=== PATIENT | female | born 1970 | race Caucasian/White ===

== ENCOUNTER 2016-08-13 13:21 | Emergency (ER) | payer BC ==
[~2016-08-13] VITALS: Ht 165.1 cm; Wt 57.7 kg
[2016-08-13 13:50] LABS: BASO # 0.1 (0.0-0.2); BASO % 0.5 % (0.0-2.0); EOS # 0.3 (0.0-0.7); EOS % 2.8 % (0-4.0); GRAN # 7.3 (1.4-6.5); HEMATOCRIT 43.4 % (37.0-47.0); HEMOGLOBIN 15.1 g/dl (12.5-16.0); LYMPH # 3.7 (1.2-3.4); LYMPH % 30.2 % (20.0-51.0); MEAN CELL VOLUME 93 fl (80.0-100.0); MEAN CORPUSCULAR HEMOGLOBIN 32 pg (27.0-31.0); MEAN CORPUSCULAR HGB CONC 35 g/dl (33.0-37.0); MEAN PLATELET VOLUME 9.8 fl (7.4-10.4); MONO # 0.8 (0.1-0.6); MONO % 6.2 % (1.7-9.3); PLATELET COUNT 245 K/mm3 (130-400); RED BLOOD COUNT 4.69 M/mm3 (4.10-5.30); REDCELL DISTRIBUTION WIDTH-CV 13.7 % (11.5-14.5); WHITE BLOOD COUNT 12.1 K/mm3 (4.8-10.8)
[2016-08-13] MEDS ORDERED: MOTRIN 200200 MG/TAB PO (13:51)
[2016-08-13] MEDS ORDERED: ASPIRIN 81M81 MG/TA2 PO (13:51)
[2016-08-13] MEDS ORDERED: PRILOSEC 20MG20 MG PO (13:52)
[2016-08-13] MEDS ORDERED: ULTRAM 50MG TAB50 MG PO (13:52)
[2016-08-13 14:00] LABS: PROTHROMBIN TIME 11.2 SECONDS (9.7-12.8)
[2016-08-13 14:02] LABS: PARTIAL THROMBOPLASTIN TIME 34.7 SECONDS (26.0-37.0)
[2016-08-13 14:13] LABS: ADJUSTED CALCIUM 10.2 mg/dL (8.4-10.2); ALANINE AMINOTRANSFERASE 37 U/L (9-52); ALBUMIN 4.5 gm/dL (3.5-5.0); ALKALINE PHOSPHATASE 104 U/L (50-136); ANION GAP 14 mmol/L (7-16); BILIRUBIN,TOTAL 0.6 mg/dL (0.0-1.0); BLOOD UREA NITROGEN 18 mg/dL (7-17); CALCIUM 10.6 mg/dL (8.4-10.2); CARBON DIOXIDE 27 mmol/L (22-30); CHLORIDE 98 mmol/L (98-107); CREATININE, serum 1.09 mg/dL (0.52-1.25); GLUCOSE 88 mg/dL (74-106); SODIUM 139 mmol/L (137-145); TOTAL PROTEIN 8.4 gm/dL (6.4-8.2)
[2016-08-13 15:04] LABS: TROPONIN-I < 0.012 ng/mL (0.000-0.034)
[2016-08-13 17:50] VITALS: BP 139/72; PULSE 73
== END 2016-08-13 17:50 | disposition home or self-care (01) ==
LOC: COL.ER 13:21
PROVIDERS: Emergency Medicine
DX: R07.89 Other chest pain (principal); F17.210 Nicotine dependence, cigarettes, uncomplicated

== ENCOUNTER 2017-02-18 15:29 | Emergency (ER) | payer BC ==
[~2017-02-18] VITALS: Ht 172.7 cm; Wt 61.8 kg
[~2017-02-18 15:29] MED LIST: ASPIRIN 81M81 MG/TA2 PO; MOTRIN 200200 MG/TAB PO; PRILOSEC 20MG20 MG PO; ULTRAM 50MG TAB50 MG PO
[2017-02-18 15:46] VITALS: BP 138/76; TEMP 97
[2017-02-18 16:19] LABS: BASO # 0.1 (0.0-0.2); BASO % 0.6 % (0.0-2.0); EOS # 0.2 (0.0-0.7); EOS % 2.3 % (0-4.0); GRAN # 5.1 (1.4-6.5); HEMATOCRIT 39.4 % (37.0-47.0); HEMOGLOBIN 13.7 g/dl (12.5-16.0); LYMPH # 3.4 (1.2-3.4); LYMPH % 36.2 % (20.0-51.0); MEAN CELL VOLUME 92 fl (80.0-100.0); MEAN CORPUSCULAR HEMOGLOBIN 32 pg (27.0-31.0); MEAN CORPUSCULAR HGB CONC 35 g/dl (33.0-37.0); MEAN PLATELET VOLUME 9.5 fl (7.4-10.4); MONO # 0.6 (0.1-0.6); MONO % 6.6 % (1.7-9.3); PLATELET COUNT 231 K/mm3 (130-400); RED BLOOD COUNT 4.28 M/mm3 (4.10-5.30); REDCELL DISTRIBUTION WIDTH-CV 13.2 % (11.5-14.5); WHITE BLOOD COUNT 9.5 K/mm3 (4.8-10.8)
[2017-02-18 16:31] LABS: PROTHROMBIN TIME 10.9 SECONDS (9.7-12.8)
[2017-02-18 16:33] LABS: PARTIAL THROMBOPLASTIN TIME 30.6 SECONDS (26.0-37.0)
[2017-02-18 16:34] LABS: ADJUSTED CALCIUM 9.3 mg/dL (8.4-10.2); ALANINE AMINOTRANSFERASE 26 U/L (9-52); ALBUMIN 4.3 gm/dL (3.5-5.0); ALKALINE PHOSPHATASE 94 U/L (50-136); ANION GAP 10 mmol/L (7-16); BILIRUBIN,TOTAL 0.4 mg/dL (0.0-1.0); BLOOD UREA NITROGEN 8 mg/dL (7-17); CALCIUM 9.5 mg/dL (8.4-10.2); CARBON DIOXIDE 26 mmol/L (22-30); CHLORIDE 96 mmol/L (98-107); CREATININE, serum 0.76 mg/dL (0.52-1.25); GLUCOSE 97 mg/dL (74-106); POTASSIUM 3.7 mmol/L (3.4-5.0); SODIUM 133 mmol/L (137-145); TOTAL PROTEIN 7.6 gm/dL (6.4-8.2)
[2017-02-18 16:48] LABS: TROPONIN-I < 0.012 ng/mL (0.000-0.034)
[2017-02-18] MEDS ORDERED: MEDROL 4MG DOSPA4 MG PO (17:21)
[2017-02-18] MEDS ORDERED: NORCO 325 MG-51 TAB PO (17:22)
[2017-02-18 17:57] VITALS: PULSE 64
== END 2017-02-18 17:59 | disposition home or self-care (01) ==
LOC: COL.ER 15:29
PROVIDERS: Family Medicine
DX: M54.12 Radiculopathy, cervical region (principal); I25.10 Atherosclerotic heart disease of native coronary artery without angina pectoris; K21.9 Gastro-esophageal reflux disease without esophagitis; Z95.5 Presence of coronary angioplasty implant and graft
CPT/HCPCS: J2270; J2405

== ENCOUNTER → 2017-03-18 | Outpatient (CLI) | payer BC ==
[~2017-03-18] MED LIST changes: +MEDROL 4MG DOSPA4 MG PO; +NORCO 325 MG-51 TAB PO
== END ==
LOC: MC.RAD 09:40
DX: N64.89 Other specified disorders of breast (principal); R92.0 Mammographic microcalcification found on diagnostic imaging of breast

== ENCOUNTER 2017-04-09 06:54 | Day surgery (SDC) | payer BC ==
[~2017-04-09] VITALS: Ht 165.1 cm; Wt 68.1 kg
[2017-04-09 08:18] VITALS: BP 120/71; PULSE 65; TEMP 97.5
[2017-04-09] MEDS ORDERED: PLAVIX 75MG TAB75 MG PO (08:33)
[2017-04-09] MEDS ORDERED: NORCO 325 MG-51 TAB PO (14:58)
[2017-04-09] MEDS ORDERED: COLACE 100100 MG/CAP PO (14:59)
[2017-04-09] MEDS ORDERED: MOTRIN 600600 MG/TAB PO (14:59)
[2017-04-09 15:05] VITALS: BP 109/63; PULSE 65; TEMP 97.2
[2017-04-09 15:15] VITALS: BP 113/65; PULSE 62
[2017-04-09 15:30] VITALS: BP 109/73; PULSE 62
[2017-04-09 15:55] VITALS: BP 118/70; PULSE 60
[2017-04-09 16:15] VITALS: BP 100/60; PULSE 59
== END 2017-04-09 17:00 | disposition home or self-care (01) ==
LOC: SDCO 06:54
DX: D05.11 Intraductal carcinoma in situ of right breast (principal); I25.10 Atherosclerotic heart disease of native coronary artery without angina pectoris; Z86.718 Personal history of other venous thrombosis and embolism; Z86.73 Personal history of transient ischemic attack (TIA), and cerebral infarction without residual deficits; G43.909 Migraine, unspecified, not intractable, without status migrainosus; C79.02 Secondary malignant neoplasm of left kidney and renal pelvis; F17.210 Nicotine dependence, cigarettes, uncomplicated; Z79.01 Long term (current) use of anticoagulants; K21.9 Gastro-esophageal reflux disease without esophagitis; Z95.828 Presence of other vascular implants and grafts; Z82.49 Family history of ischemic heart disease and other diseases of the circulatory system; Z83.3 Family history of diabetes mellitus
CPT/HCPCS: A9541; J1170; J2405; J2704; J3010; J7030

== ENCOUNTER → 2017-04-21 | Outpatient (CLI) | payer BC ==
[~2017-04-21] MED LIST changes: +COLACE 100100 MG/CAP PO; +MOTRIN 600600 MG/TAB PO; +NEURONTIN100 MG/CAP PO; +PLAVIX 75MG TAB75 MG PO
== END ==
LOC: COL.VAS 12:24
DX: Z79.899 Other long term (current) drug therapy (principal)

== ENCOUNTER 2017-04-23 11:43 | Day surgery (SDC) | payer BC ==
[~2017-04-23] VITALS: Ht 162.6 cm; Wt 62.8 kg
[~2017-04-23 11:43] MED LIST changes: -NEURONTIN100 MG/CAP PO
[2017-04-23 12:23] VITALS: BP 123/75; PULSE 97; TEMP 97.3
[2017-04-23] MEDS ORDERED: NORCO 325 MG-51 TAB PO (14:00)
[2017-04-23] MEDS ORDERED: COLACE 100100 MG/CAP PO (14:00)
[2017-04-23] MEDS ORDERED: MOTRIN 600600 MG/TAB PO (14:00)
[2017-04-23] MEDS ORDERED: NEURONTIN100 MG/CAP PO (14:01)
[2017-04-23 15:05] VITALS: BP 129/73; PULSE 68; TEMP 97.5
[2017-04-23 15:20] VITALS: BP 125/70; PULSE 69
[2017-04-23 15:35] VITALS: BP 144/76; PULSE 70
== END 2017-04-23 15:55 | disposition home or self-care (01) ==
LOC: SDCO 11:43
DX: C50.911 Malignant neoplasm of unspecified site of right female breast (principal); G43.909 Migraine, unspecified, not intractable, without status migrainosus; I25.10 Atherosclerotic heart disease of native coronary artery without angina pectoris; F17.210 Nicotine dependence, cigarettes, uncomplicated; Z86.73 Personal history of transient ischemic attack (TIA), and cerebral infarction without residual deficits; Z90.49 Acquired absence of other specified parts of digestive tract; Z79.01 Long term (current) use of anticoagulants; Z82.49 Family history of ischemic heart disease and other diseases of the circulatory system; Z83.3 Family history of diabetes mellitus; Z80.1 Family history of malignant neoplasm of trachea, bronchus and lung
CPT/HCPCS: C1788; J0690; J1644; J2704; J3010; J7030; J7120

== ENCOUNTER → 2017-12-15 | Outpatient (CLI) | payer BC ==
[~2017-12-15] MED LIST changes: +NEURONTIN100 MG/CAP PO
== END ==
LOC: COL.VAS 09:35
DX: Z51.81 Encounter for therapeutic drug level monitoring (principal); C50.411 Malignant neoplasm of upper-outer quadrant of right female breast; I36.1 Nonrheumatic tricuspid (valve) insufficiency; Z79.899 Other long term (current) drug therapy

== ENCOUNTER → 2018-07-23 | Outpatient (CLI) | payer BC | LOC: COL.RAD 09:30 | DX: C50.411 Malignant neoplasm of upper-outer quadrant of right female breast (principal); J84.9 Interstitial pulmonary disease, unspecified; J84.10 Pulmonary fibrosis, unspecified; R91.1 Solitary pulmonary nodule; R59.0 Localized enlarged lymph nodes; Z98.890 Other specified postprocedural states | CPT/HCPCS: A9503; Q9967 ==

== ENCOUNTER 2018-08-23 14:40 | Inpatient (IN) | payer BC ==
[~2018-08-23] VITALS: Ht 162.6 cm; Wt 62.6 kg
[2018-09-28] VITALS (12 sets, daily range): BP systolic 30–164; BP diastolic 63–74; PULSE 57–74; TEMP 97.3–98.7
[2018-09-28] MEDS ORDERED: ZOFRAN8 MG PO (07:02)
[2018-09-28] MEDS ORDERED: PAXIL 20MG20 MG PO (07:02)
[2018-09-28] MEDS ORDERED: TYLENOL 500MG500 MG PO (07:03)
[2018-09-28] MEDS ORDERED: VENTOLIN0.09 MG IH (07:04)
--- NOTE | 2018-09-28 15:20 | NUR ---
Patient resting in bed with eyes closed. When patient opens eyes, she cries out in pain, but falls asleep frequently. Arousable to touch and voice. Oriented to self, place, time, and day. Keeps asking for family to take her home when she is awake and complains of significant pain. Patient able to answer questions about home medications, but would rest her eyes in between questions. Following ERAS protocol. 55ml of ellen urine noted in Feldman. 55ml of dark red drainage from KERVIN drain. 5 lap sites covered with CDI bandaids. Drain site covered with tegaderm. Noted to have small amount of red drainage. Family and patient educated on ERAS protocol. Water and apple juice at bedside.
--- NOTE | 2018-09-28 20:10 | NUR ---
Shift assessment complete at this time. Plan of care reviewed at bedside with patient et family. Additional time taken to address any other needs or concerns. Reports abdominal pain and nausea. Zofran administered per orders. Will give Tramadol per patient request when available. Will continue to monitor.
[2018-09-29] VITALS (8 sets, daily range): BP systolic 130–162; BP diastolic 70–80; PULSE 53–97; TEMP 97.8–98.5
--- NOTE | 2018-09-29 | NUR ---
Pt sleeping comfortably in bed. Reports tolerable abdomen pain and declines further intervention. Vitals stable. Denies any other discomfort. Will continue to monitor.
--- NOTE | 2018-09-29 04:00 | NUR ---
Pt resting in bed. Reports improving L flank pain after PRN administration. Vitals stable. Denies any other discomforts. Will continue to monitor.
--- NOTE | 2018-09-29 06:30 | NUR ---
Reported on to Kelly SAUNDERS and Casi SAUNDERS.
--- NOTE | 2018-09-29 07:02 | NUR ---
Bedside report given to CHIP Lance.
--- NOTE | 2018-09-29 07:05 | NUR ---
Patient resting comfortably, supine in bed, alert and oriented. Five incision sites to left side abdomen, covered with band-aids, CDI. KERVIN drain to site CDI with 30ml bloody drainage present in bulb suction device. C/o 5/10 aching pain to site of incisions on left side radiating in to epigastric region. Portacath to right chest wall patent with no signs or symptoms of infiltration, redness and dressing intact. NS IV fluids running at 150ml/hr. Feldman catheter intact with adhesive securement device to right thigh. 45ml yellow, clear urine in catheter bag. Assessment charted and VSS. Patient encouraged to increase fluids and eat, but patient refused to eat breakfast.
--- NOTE | 2018-09-29 07:06 | NUR ---
Report received from CHIP Saunders. Patient resting in bed with eyes closed. IV fluids running to PortaCath.
[2018-09-29 07:35] LABS: BASO % 0.1 % (0.0-2.0); GRAN % 80.2 % (42.2-75.2); HEMOGLOBIN 11.8 g/dl (12.5-16.0); LYMPH # 1.7 (1.2-3.4); LYMPH % 10.5 % (20.0-51.0); MEAN CELL VOLUME 95 fl (80.0-100.0); MEAN CORPUSCULAR HEMOGLOBIN 32 pg (27.0-31.0); MEAN CORPUSCULAR HGB CONC 34 g/dl (33.0-37.0); MEAN PLATELET VOLUME 9.8 fl (7.4-10.4); MONO # 1.4 (0.1-0.6); MONO % 8.8 % (1.7-9.3); PLATELET COUNT 215 K/mm3 (130-400); RED BLOOD COUNT 3.64 M/mm3 (4.10-5.30); REDCELL DISTRIBUTION WIDTH-CV 14.5 % (11.5-14.5)
[2018-09-29 07:43] LABS: HEMATOCRIT 34.4 % (37.0-47.0)
--- NOTE | 2018-09-29 07:48 | NUR ---
Patient resting in bed and complains of epigastric pain. History of acid reflux noted. Protonix given this morning. Patient educated on getting up and around today per enhanced recovery protocol. KERVIN drain noted to drain dark red fluid. Lap sites are CDI. Heating pad noted to abdomen. Feldman draining clear, yellow urine. She ordered breakfast and was educated on getting up to the chair to eat.
[2018-09-29 07:50] LABS: CALCIUM 8.7 mg/dL (8.4-10.2); CREATININE, serum 0.96 mg/dL (0.52-1.25); POTASSIUM 4.7 mmol/L (3.4-5.0)
--- NOTE | 2018-09-29 08:30 | NUR ---
Patient assisted from bed to chair. All tubing and lines patent and unkinked. Pain assessed at 8/10 to left side. Reported pain to Casi SAUNDERS.
--- NOTE | 2018-09-29 09:41 | NUR ---
Patient c/o pain 02/12 to abdomen. Education given on the importance of movement to assist with gas in the abdomen. Patient was assisted into the chair by nursing resident. Heat applied to abdomen. Patient has refused to eat at this time, stating, "maybe later."
--- NOTE | 2018-09-29 10:00 | NUR ---
Pain reassessed at 09/12 and patient ambulated from chair down corridor of greater than 150 feet with gait belt on and standy assist. Patient tolerated ambulation well with no dizziness. Patient assisted back to bed in supine position. Bed bath provided, linens changed, and call light within reach. No other concerns voiced at this time.
--- NOTE | 2018-09-29 10:56 | NUR ---
SW met with the patient to discuss discharge plan. The patient lives in [place] with her , Ankit. She reports independence with ADLs and does not have any DME. The patient's PCP is Dr. Vanita Cooper and she receives her medications at the [facility]. She reports occasional difficulties affording her meds, when insurance does not cover. The patient does not have advanced directives in EMR, but she states that she does have them completed and that they are at home. The patient plans to return home with her upon discharge. No additional needs at this, but SW to continue to follow for med assistance.
--- NOTE | 2018-09-29 12:07 | NUR ---
First visit from the telephone diaphragm assembler. No needs right now.
--- NOTE | 2018-09-29 15:12 | NUR ---
Patient resting with eyes closed when this nurse entered the room. Family at bedside. Feldman and KERVIN drain emptied. Patient states she is doing well. Patient agreed the goal for ambulation to be 4 more walks before 1900, so 1 walk every hour. Stated family would walk with her. This nurse noted her walking already with family member.
--- NOTE | 2018-09-29 18:39 | NUR ---
Patient resting in bed. Family at bedside. Will report off to plant operator/shift supervisor.
--- NOTE | 2018-09-29 22:00 | NUR ---
Patient in bed, reports she walked 7 times today and did not want to walk tonight. Is alert and oriented. Connected IVF to right Portacath at 75cc/hr per Dr Bone's order. Has left KERVIN to bulb suction with sanguinous drainage. Has bandaids to abdomen x4 and opsite covering EKRVIN site. Kpad to abdomen for comfort. SCD's placed back on patient. Has taken full liquids fair.
[2018-09-30] VITALS (7 sets, daily range): BP systolic 139–164; BP diastolic 72–93; PULSE 55–64; TEMP 97.3–98.8
--- NOTE | 2018-09-30 05:10 | NUR ---
Patient in bed, awake. Drinking tea per her request. Lab work obtained. KERVIN drainage sent to lab. Total 110cc output from KERVIN at this time, 180cc for this shift. Reports pain 09/12.
[2018-09-30 07:12] LABS: BASO % 0.3 % (0.0-2.0); EOS # 0.1 (0.0-0.7); GRAN # 6.6 (1.4-6.5); GRAN % 63.4 % (42.2-75.2); HEMOGLOBIN 11.2 g/dl (12.5-16.0); LYMPH # 2.8 (1.2-3.4); MEAN CELL VOLUME 95 fl (80.0-100.0); MEAN CORPUSCULAR HEMOGLOBIN 33 pg (27.0-31.0); MEAN CORPUSCULAR HGB CONC 34 g/dl (33.0-37.0); MEAN PLATELET VOLUME 9.8 fl (7.4-10.4); MONO # 0.8 (0.1-0.6); PLATELET COUNT 216 K/mm3 (130-400); RED BLOOD COUNT 3.44 M/mm3 (4.10-5.30); REDCELL DISTRIBUTION WIDTH-CV 14.6 % (11.5-14.5)
[2018-09-30 07:20] LABS: HEMATOCRIT 32.6 % (37.0-47.0)
[2018-09-30 07:24] LABS: CALCIUM 8.3 mg/dL (8.4-10.2); CREATININE, serum 0.99 (0.52-1.25); POTASSIUM 4.2 mmol/L (3.4-5.0)
--- NOTE | 2018-09-30 08:49 | NUR ---
patient up to the chair this am. Dr. Bone rounded. Orders obtained. Port to INT. Carey GLASER by student nurse. Full liquid breakfast ordered. Patient abdomen soft. She reports passing flatus. Jace to bulb compression. Bandaids removed from lap site x5. edges well approximated. Fresh linens provided. Patietn hoping to shower today
--- NOTE | 2018-09-30 09:38 | NUR ---
Patient up to the chair. She has reports of elevated pain around drain site. Noted to have saturated gown & pad. Gauze dressing saturated. Patient assisted back to bed, almost tearful. More clam not that she is resting, Vss. notifed regauring patient status, Will continue to closely montior.
--- NOTE | 2018-09-30 10:17 | NUR ---
pt resting in bed. aranda DCd per orders. pt tolerated removal well. 9ml of water removed from balloon. tip intact. Wound edges appoximated on lap sites x5. KERVIN draining large amounts of blood tinged drainage saturating the dressing. bed pad and gown saturated and pt experienced increased discomfort while up in chair. PRN Tramadol was given for pain control. pt returned back to bed. KERVIN drain dressing changed. 60mL of blood tinged drainage were drained. heating pad applied to abdomen and pt stated it was helping for the pain. will continue to monitor. call light within reach.
--- NOTE | 2018-09-30 10:48 | NUR ---
Patient up to the bathroom & voided 300ML urine. Continues to report elevated pain with movement, she reports it feeling like something is "poking" her. Patient pain relieved when resting in bed.
--- NOTE | 2018-09-30 12:24 | NUR ---
pt resting quietly in bed. KERVIN Drain site dressing CDI. Drained 40mL of blood tinged drainage from bulb suction. pt said pain is about a 2 on 1-10 scale. heating pad still in place on abdomen for comfort measure. pt denies any further needs at this time. call light within reach
--- NOTE | 2018-09-30 15:35 | NUR ---
Patient has been resting in bed. Spoke with , He is aware of patient decreased activity today & continued pain with movement.
--- NOTE | 2018-09-30 17:44 | NUR ---
Patient showered this afternoon, Port & KERVIN covered. She tolerted the activity. She sat in the chair for awhile, but wanted back to bed. She ate some mashed potatoes for dinner. KERVIN drain to compression & Patient is voiding. Will monitor
--- NOTE | 2018-09-30 18:24 | NUR ---
PT RESTING IN BED WATCHING TV. REPORT PAIN LEVEL 2/10. NO COMPLAINTS AT THIS TIME. CALL LIGHT WITHIN REACH. REPORT GIVEN TO UZIEL SAUNDERS.
--- NOTE | 2018-09-30 18:54 | NUR ---
REPORT TO LUTHER. PATIETN RESTING IN BED
--- NOTE | 2018-09-30 21:00 | NUR ---
Patient in bed, has Kpad to abdomen. Reports pain to left KERVIN drain site, 4/10. Medicated with Tramadol 100mg and HS meds at this time. Has 4 lap sites, glued and dry. KERVIN drain site with gauze and occlusive drsg. Bowel sounds active, passing gas. KERVIN to bulb suction. Voiding without problem. Is aware she will be NPO after midnight for potential surgery in AM.
--- NOTE | 2018-09-30 23:29 | NUR ---
Patient up to bathroom, has small soft BM and back to bed.
[2018-10-01] VITALS (10 sets, daily range): BP systolic 131–176; BP diastolic 61–81; PULSE 56–71; TEMP 98–98.3
--- NOTE | 2018-10-01 00:05 | NUR ---
Patient up to bathroom, voids 400cc of yellow urine. KERVIN emptied for 40cc serosanguinous drainage. Takes scheduled ES Tylenol and IV Toradol at this time. Is NPO x meds.
--- NOTE | 2018-10-01 05:00 | NUR ---
Patient has been up bathroom and voided well during the night. Emptied KERVIN this AM and sent drainage to lab for creatinine. Initiate pre-op IVF LR at 60cc/hr per dial-a-flow. Is NPO for potential cysto with stent placement. IV Toradol given at this time.
[2018-10-01 07:02] LABS: CALCIUM 8.3 mg/dL (8.4-10.2); CREATININE, serum 0.94 (0.52-1.25); POTASSIUM 3.9 mmol/L (3.4-5.0)
--- NOTE | 2018-10-01 07:57 | NUR ---
PATIENT DROWSY AND RESTING IN BED. PATIENT AROUSES TO NAME EASILY. PATIENT A&O. VSS. BOWEL SOUNDS HYPOACTIVE ALL FOUR QUADRANTS. ABDOMINAL LAP SITES X4 NETWORK DESKTOP SUPPORT SPECIALIST WITH EDGES WELL APPROXIMATED AND PATEL SET IN PLACE. LEFT-SIDED ABDOMINAL KERVIN DRAIN TO BULB SUCTION WITH SMALL AMOUNTS OF RED-TINGED DRAIANGE PRESENT IN COMRESSED BULB. KERVIN INCISION SITE DRESSED WITH GAUZE & TEGADERM AND IS CD&I. POSITIVE PEDAL PULSES EQUAL BILATERALLY. CAP REFILL <3 SECONDS. PATIENT IS NPO FOR SURGERY. PATIENT DENIES VOMITING BUT STATES THAT SHE FEELS NAUSEATED THIS MORNING. PATIENT REQUESTED MEDICATION FOR NAUSEA. SURGICAL CONSENT FORM SIGNED AND ON PATIENT CHART. CALL LIGHT WITHIN REACH. PATIENT DENIES ANY OTHER NEEDS AT THIS TIME.
--- NOTE | 2018-10-01 08:28 | NUR ---
PATIENT OPERATIVE FLUIDS HANGING AND INFUSING TO RIGHT CHEST SABA CATH. PRE-OP MEDICATIONS GIVEN BY STUDENT RN. PATIENT GIVEN BED BATH. PATIENT TAKEN TO PERIOP VIA BED BY CHIP HEALY. WILL WAIT FOR PATIENT ARRIVAL BACK TO ROOM 348.
--- NOTE | 2018-10-01 08:55 | NUR ---
Pts morning medications scanned in but unable to administer medications due to patient being taken down for surgery
--- NOTE | 2018-10-01 10:50 | NUR ---
PATIENT ARRIVED BACK TO ROOM 348 VIA BED FROM PACU. PATIENT IS DROWSY BUT AROUSES EASILY TO NAME. POST-OP VITALS STABLE. FAMILY PRESENT AT BEDSIDE. CALL LIGHT WITHIN REACH. WILL CONTINUE TO MONITOR.
--- NOTE | 2018-10-01 11:20 | NUR ---
PATIENT TOLERATING CLEAR LIQUIDS WITHOUT ANY COMPLAINTS OF N/V. DIET ADVANCED TO GENERAL.
--- NOTE | 2018-10-01 12:53 | NUR ---
Patients Dwight-Cath dressing changed.
--- NOTE | 2018-10-01 14:35 | NUR ---
POST-OP VITAL SIGNS COMPLETE. PATIENT SITTING UP IN BED. PATIENT DENIES ANY NEEDS AT THIS TIME.
--- NOTE | 2018-10-01 18:12 | NUR ---
Pt resting in bed, on phone. Ambulates to BR independently. Side rails up, bedside table within reach, and call light within reach. Reported off to CHIP Smith.
--- NOTE | 2018-10-01 19:02 | NUR ---
REPORT GIVEN TO CHIP LANDRY.
--- NOTE | 2018-10-01 21:05 | NUR ---
Patient assessed at this time. Complain of pain and discomfort to abdomen and groin. Indwelling aranda catheter patent, and draining ellen, clear urine via dependent drainage. 4 surgical sites to abdomen are open to air. Sites are scabbed over, and without redness, warmth, swelling, and pain. KERVIN drain is CDI. 20 ml bloody drainage emptied at this time. Denies having any needs or concerns at this time. Laying in bed watching TV at this time. Call light is within reach.
--- NOTE | 2018-10-02 00:09 | NUR ---
Patient given scheduled Toradol and APAP per orders. Encouraged to let this nurse know if medication is not effective, and voiced understanding. KERVIN drain and indwelling aranda catheter remains patent. Denies having any needs or concerns at this time. Portacath to right chest is patent. Resting in bed with eyes closed at this time. Call light is within reach.
--- NOTE | 2018-10-02 06:14 | NUR ---
Patient given scheduled Toradol and APAP per orders. Complaining of discomfort to perineum from catheter. Catheter and perineal hygiene care provided. Educated on KERVIN drain, and patient emptied contents with this nurse's supervision and guidance. Voiced no questsions or concerns at that time. Resting in bed with eyes closed at this time. Call light is within reach.
[2018-10-02 08:10] VITALS: BP 149/72; PULSE 58; TEMP 98
--- NOTE | 2018-10-02 08:30 | NUR ---
Patient in bed resting; spouse at bedside. Alert and orietned x 3. Shift assessment complete. Lap sites x4 scabbed over. KERVIN to left abdomen with gauze dressing, CDI. KERVIN to bulb compression with small amount of serosanguinous fluid present. Aranda to dependent drainage with ellen urine present. Patient states that aranda is uncomfortable and would like it out. Denies pain to lap sites. Denies further needs at this time.
--- NOTE | 2018-10-02 11:07 | NUR ---
Dr. Martinez in to see patient.
[2018-10-02] MEDS ORDERED: PYRIDIUM 100MG100 MG PO (11:59)
[2018-10-02] MEDS ORDERED: LEVAQUIN 5500 MG/TA1 PO (12:16)
[2018-10-02] MEDS ORDERED: PERCOCET 325 MG1 TA2 PO (12:18)
[2018-10-02 12:30] VITALS: BP 155/70; PULSE 60; TEMP 98.8
--- NOTE | 2018-10-02 12:30 | NUR ---
Patient up ambulating in halls independently
--- NOTE | 2018-10-02 15:00 | NUR ---
Discharge instructions provided. Patient educated on signs and symptoms of infection. Instructed patient on draining aranda and how to apply leg bag. Patient demonstrated back how to drain Aranda and KERVIN. Patient re-educated on draining KERVIN. Patient instructed to record drainage throughout the day and take to follow up appointment. Patient verbalized understanding. Port to right chest, discontinued. Tolerated procedure well. Denies further needs at this time. States relief from groin discomfort after pyridium administration. Patient ambulated out with spouse and surgical staff.
== END 2018-10-02 15:10 | disposition home or self-care (01) | DRG 657 ==
LOC: SURG 09-28 05:22 → INPTSU 09-28 05:22 → SURG 09-28 07:30
PROVIDERS: ADMIT Urology
PROC: 8E0W4CZ Robotic Assisted Procedure of Trunk Region, Percutaneous Endoscopic Approach (ICD-10-PCS; 2018-09-28)
PROC: 0TB14ZZ Excision of Left Kidney, Percutaneous Endoscopic Approach (ICD-10-PCS; principal; 2018-09-28 07:30)
PROC: BT1FZZZ Fluoroscopy of Left Kidney, Ureter and Bladder (ICD-10-PCS; 2018-10-01)
PROC: 0T778DZ Dilation of Left Ureter with Intraluminal Device, Via Natural or Artificial Opening Endoscopic (ICD-10-PCS; 2018-10-01 09:50)
DX: C64.2 Malignant neoplasm of left kidney, except renal pelvis (principal); R39.0 Extravasation of urine; Z85.3 Personal history of malignant neoplasm of breast; F17.210 Nicotine dependence, cigarettes, uncomplicated; Z86.73 Personal history of transient ischemic attack (TIA), and cerebral infarction without residual deficits
CPT/HCPCS: A4314; A9284; C1769; C2617; J0690; J1100; J1885; J1956; J2250; J2405; J2550; J2704; J2795; J3010; J7030; J7120; Q9967

== ENCOUNTER → 2018-12-31 | Outpatient (CLI) | payer BC ==
[~2018-12-31] MED LIST changes: +LEVAQUIN 5500 MG/TA1 PO; +PAXIL 20MG20 MG PO; +PERCOCET 325 MG1 TA2 PO; +PYRIDIUM 100MG100 MG PO; +TYLENOL 500MG500 MG PO; +VENTOLIN0.09 MG IH; +ZOFRAN8 MG PO
== END ==
LOC: COL.VAS 08:47
DX: Z51.81 Encounter for therapeutic drug level monitoring (principal); C50.411 Malignant neoplasm of upper-outer quadrant of right female breast; I34.0 Nonrheumatic mitral (valve) insufficiency; Z79.899 Other long term (current) drug therapy

== ENCOUNTER → 2019-04-05 | Outpatient (CLI) | payer BC | LOC: COL.RAD 09:35 | DX: C50.411 Malignant neoplasm of upper-outer quadrant of right female breast (principal); Z95.9 Presence of cardiac and vascular implant and graft, unspecified; Z90.49 Acquired absence of other specified parts of digestive tract; Z92.3 Personal history of irradiation | CPT/HCPCS: Q9967 ==

== ENCOUNTER → 2019-06-09 | Outpatient (CLI) | payer BC | LOC: MC.RAD 14:38 | DX: Z12.31 Encounter for screening mammogram for malignant neoplasm of breast (principal); C50.411 Malignant neoplasm of upper-outer quadrant of right female breast ==

== ENCOUNTER → 2020-06-11 | Outpatient (CLI) | payer BC, MEDICAID | LOC: MC.RAD 14:36 | DX: Z12.31 Encounter for screening mammogram for malignant neoplasm of breast (principal); Z85.3 Personal history of malignant neoplasm of breast ==